=== PATIENT | male | born 1995 | race Caucasian/White ===

== ENCOUNTER 2018-07-08 15:10 | Emergency (ER) | payer MEDICAID, OTHER ==
[~2018-07-08] VITALS: Ht 175.3 cm; Wt 136.5 kg
--- NOTE | 2018-07-08 15:22 | NUR ---
PATIENT PAT INTO ROOM FOR LEFT LOWER FOOT PAIN. STATES HE HAS HISTORY OF GOUT. PAIN IS THE SAME WHEN HE HAS GOUT AROUND UPPER BIG TOE BUT PAIN IS ON THE INNER SIDE OF THE FOOT.
--- NOTE | 2018-07-08 15:24 | NUR ---
PATIENT WAITING TO BE SEEN BY PHYSICIAN
[2018-07-08] MEDS ORDERED: RISE150T PO (15:35)
[2018-07-08] MEDS ORDERED: LORA0.5T48 PO (15:35)
[2018-07-08] MEDS ORDERED: OMEP40CA37 PO (15:35)
[2018-07-08] MEDS ORDERED: BUPR300T52 PO (15:35)
[2018-07-08] MEDS ORDERED: MILN50TA PO (15:35)
[2018-07-08] MEDS ORDERED: LUBI24CA5 PO (15:35)
[2018-07-08] MEDS ORDERED: CALC1CAP29 PO (15:35)
[2018-07-08] MEDS ORDERED: OSPE60TA2 PO (15:35)
[2018-07-08] MEDS ORDERED: KETOROLAC TROMETHAMINE 30 MG INJ IM ONE (15:45)
[2018-07-08] MEDS ORDERED: KETOROLAC TROMETHAMINE 30 MG INJ ONE (15:49)
--- NOTE | 2018-07-08 16:26 | NUR ---
Patient discharged to home in stable conditon. Written and verbal after care instructions given. Patient verbalizes understanding of instructions.
[2018-07-08 16:34] VITALS: BP 112/70
== END 2018-07-08 16:34 | disposition home or self-care (01) ==
LOC: ER 15:12
DX: M10.9 Gout, unspecified (principal)
CPT/HCPCS: A4663; J1885

== ENCOUNTER 2018-08-11 12:05 | Emergency (ER) | payer OTHER ==
[~2018-08-11] VITALS: Ht 175.3 cm; Wt 136.5 kg
[~2018-08-11 12:05] MED LIST: BUPR300T52 PO; CALC1CAP29 PO; LORA0.5T48 PO; LUBI24CA5 PO; MILN50TA PO; OMEP40CA37 PO; OSPE60TA2 PO; RISE150T PO
--- NOTE | 2018-08-11 12:17 | NUR ---
Dr Pearson at the bedside for MSE.
[2018-08-11 12:25] VITALS: BP 127/78
--- NOTE | 2018-08-11 12:27 | NUR ---
Patient discharged to home in stable conditon. Written and verbal after care instructions given. Patient verbalizes understanding of instructions.
== END 2018-08-11 12:26 | disposition home or self-care (01) ==
LOC: ER 12:07
DX: B00.2 Herpesviral gingivostomatitis and pharyngotonsillitis (principal)
CPT/HCPCS: A4663

== ENCOUNTER 2019-05-20 14:37 | Emergency (ER) | payer OTHER ==
[~2019-05-20] VITALS: Ht 175.3 cm; Wt 136.1 kg
--- NOTE | 2019-05-20 14:59 | NUR ---
Patient discharged to home in stable conditon. Written and verbal after care instructions given. Patient verbalizes understanding of instructions.
[2019-05-20 15:00] VITALS: BP 128/80
== END 2019-05-20 15:00 | disposition home or self-care (01) ==
LOC: ER 14:37
DX: H10.9 Unspecified conjunctivitis (principal); Z79.899 Other long term (current) drug therapy
CPT/HCPCS: A4663